=== PATIENT | male | born 1995 | race African-American/Black ===

== ENCOUNTER 2017-03-07 13:26 | Emergency (ER) | payer SELFPAY ==
[~2017-03-07] VITALS: Ht 177.8 cm; Wt 74.7 kg
[2017-03-07 14:14] LABS: DAU SCREEN DISCLAIMER
[2017-03-07 14:20] LABS: BLOOD UREA NITROGEN 18 mg/dL (7-18)
[2017-03-07 14:28] LABS: ASPARTATE AMINO TRANSFERASE 19 U/L (15-37)
[2017-03-07 14:29] LABS: ACETAMINOPHEN < 2 mcg/mL (10-30)
[2017-03-07] MEDS ORDERED: HALOPERIDOL 5 MG/ML IM PRN (19:30)
[2017-03-07] MEDS ORDERED: PLEASE ENTER ALLERGIES MC SCH ×2 (19:30)
[2017-03-07] MEDS ORDERED: ACETAMINOPHEN 325 MG TABLET PO PRN (19:30)
[2017-03-07] MEDS ORDERED: LORazepam 2 MG/ML, 1ML IM PRN (19:30)
[2017-03-08] MEDS ORDERED: PLEASE ENTER ALLERGIES MC SCH ×2 (16:00)
[2017-03-08] MEDS ORDERED: HALOPERIDOL 5 MG/ML IM PRN (16:00)
[2017-03-08] MEDS ORDERED: ACETAMINOPHEN 325 MG TABLET PO PRN (16:00)
[2017-03-08] MEDS ORDERED: LORazepam 2 MG/ML, 1ML IM PRN (16:00)
[2017-03-09 07:06] VITALS: BP 108/64
== END 2017-03-09 08:28 | disposition home or self-care (01) ==
LOC: ED 13:58 → UNDOADMOB 14:47 → INTOOBSV 14:47 → EDIP 14:47 → ED 03-09 08:28
DX: R45.851 Suicidal ideations (principal)
CPT/HCPCS: 36415; 80053; 80307; 80329; 85025; 99285; G0480

== ENCOUNTER 2017-03-09 21:58 | Observation (INO) | payer OTHER ==
[~2017-03-09] VITALS: Ht 177.8 cm; Wt 74.7 kg
[2017-03-09] MEDS ORDERED: BACITRACIN ZINC OINT 500U/GM, 0.9 GM TP ONE (23:30)
[2017-03-10] MEDS ORDERED: ACETAMINOPHEN 325 MG TABLET PO PRN (02:00)
[2017-03-10] MEDS ORDERED: LORazepam 1MG TABLET PO PRN (02:00)
[2017-03-10] MEDS ORDERED: ENOXAPARIN 40 MG/0.4 ML SQ SCH (02:00)
[2017-03-10 02:01] LABS: DAU SCREEN DISCLAIMER
[2017-03-10 03:09] VITALS: BP 119/63
[2017-03-10 08:51] VITALS: BP 95/60
[2017-03-10] MEDS: NEOSPORIN OINT, 15GM TP SCH ×3 (13:00→21:30)
[2017-03-10 19:42] VITALS: BP 110/74
[2017-03-10] MEDS ORDERED: MELATONIN 3 MG TABLET PO PRN (20:30)
[2017-03-10] MEDS ORDERED: NICOTINE 7 MG/24 HR PATCH.TD24 TD SCH (20:30)
== END 2017-03-10 22:46 ==
LOC: ED 23:59 → INTOOBSV 03-10 00:48 → EDIP 03-10 00:48 → 3E 03-10 03:07
PROVIDERS: ADMIT Internal Medicine; ATTEND Internal Medicine
DX: S00.81XA Abrasion of other part of head, initial encounter (principal); F32.9 Major depressive disorder, single episode, unspecified; F17.200 Nicotine dependence, unspecified, uncomplicated; F15.90 Other stimulant use, unspecified, uncomplicated; F14.90 Cocaine use, unspecified, uncomplicated; X83.8XXA Intentional self-harm by other specified means, initial encounter; Y93.89 Activity, other specified; Y92.89 Other specified places as the place of occurrence of the external cause; Y99.8 Other external cause status
CPT/HCPCS: 36415; 80307; 93005; 99285; G0378

== ENCOUNTER 2017-03-23 16:32 | Emergency (ER) | payer OTHER ==
[~2017-03-23] VITALS: Ht 175.3 cm; Wt 76.5 kg
[2017-03-23 16:42] VITALS: BP 112/68
== END 2017-03-23 19:03 | disposition home or self-care (01) ==
LOC: ED 18:57
DX: R51 Headache (principal); F19.10 Other psychoactive substance abuse, uncomplicated
CPT/HCPCS: 70450; 99284